=== PATIENT | male | born 1990 | race Caucasian/White ===

== ENCOUNTER 2024-11-17 09:20 | Emergency (ER) | payer OTHER ==
[~2024-11-17] VITALS: Ht 182.9 cm; Wt 82.0 kg
[~2024-11-17 09:20] MED LIST: AMOX1TAB16 MT
[2024-11-17 09:24] VITALS: O2SAT 98
[2024-11-17 10:32] VITALS: BP 136/76; PULSE 74; RESP 18; TEMP 36.8; O2SAT 99
== END 2024-11-17 10:34 | disposition home or self-care (01) ==
LOC: ER 09:20
DX: S61.411D Laceration without foreign body of right hand, subsequent encounter (principal); X58.XXXD Exposure to other specified factors, subsequent encounter
CPT/HCPCS: 99281; Z7610 ×2